=== PATIENT | female | born 1940 | race Caucasian/White ===

== ENCOUNTER 2017-04-08 06:51 | Inpatient (IN) | payer SELFPAY ==
[~2017-04-08] VITALS: Ht 152.4 cm; Wt 68.0 kg
[2017-04-08 07:58] LABS: BASOPHILS % 0.8 % (0.0-2.0); HEMOGLOBIN. 11.4 g/dL (12.0-16.0); LYMPHOCYTES % 40.7 % (20.0-50.0); MEAN CORPUSCULAR VOLUME 85.8 fL (81.0-99.0); MEAN PLATELET VOLUME 9.5 fl (7.4-10.4); MONOCYTES % 4.2 % (2.0-8.0); NEUTROPHILS % 52.3 % (40.0-76.0); PLATELET 193 x1000/uL (130-400); RED BLOOD CELL COUNT 4.08 mill/uL (4.2-5.4); RED CELL DISTRIBUTION WIDTH 14.8 % (11.6-14.6)
[2017-04-08 08:15] LABS: CARBON DIOXIDE 31 mEq/L (21-32); CHLORIDE 106 mEq/L (98-107); TROPONIN I 0.08 ng/mL (0.00-0.04)
[2017-04-08 08:39] LABS: PROTHROMBIN TIME 10.4 sec (9.4-11.6)
[2017-04-08 10:17] LABS: CLARITY URINE CLOUDY (CLEAR); COLOR URINE YELLOW (YELLOW); KETONES URINE NEGATIVE (NEGATIVE); LEUKOCYTE ESTERASE URINE 1+ (NEGATIVE); NITRITE URINE POSITIVE (NEGATIVE); OCCULT BLOOD URINE NEGATIVE (NEGATIVE); PROTEIN URINE 2+ (NEGATIVE); SPECIFIC GRAVITY URINE 1.014 (1.005-1.030); UROBILINOGEN URINE 0.2 E.U./dL (0.2-1.0)
[2017-04-08] MEDS ORDERED: LEVOFLOXACIN 750MG PREMIX 150 ML IV NR (11:15)
[2017-04-08] MEDS ORDERED: SODIUM CHLORIDE 0.9% 500 ML IV ONE (11:15)
[2017-04-09 02:15] VITALS: BP 146/65
[2017-04-09] MEDS ORDERED: DEXTROSE 50% WATER 50ML SYRINGE IV PRN (03:45)
[2017-04-09] MEDS ORDERED: HYDROCODONE/ACETAMINOPHEN 5/325MG TABLET PO PRN (03:45)
[2017-04-09] MEDS ORDERED: ACETAMINOPHEN 325MG TABLET PO PRN (03:45)
[2017-04-09 04:00] VITALS: BP 131/52
[2017-04-09] MEDS ORDERED: CEFTRIAXONE 1 G PREMIX 50 ML IV SCH (06:00)
[2017-04-09] MEDS: INSULIN LISPRO 100 UNITS/ML SUBCUT SCH ×4 (06:31→21:35)
[2017-04-09] MEDS: BLOOD SUGAR DIAGNOSTIC STRIP TEST SCH ×4 (06:31→21:00)
[2017-04-09 08:00] VITALS: BP 153/70
[2017-04-09 12:00] VITALS: BP 131/55
[2017-04-09] MEDS ORDERED: MECLIZINE 12.5MG TABLET PO PRN (15:00)
[2017-04-09] MEDS ORDERED: BISACODYL 5MG TABLET PO PRN (15:00)
[2017-04-09] MEDS: AMLODIPINE 10MG TABLET PO SCH (15:36)
[2017-04-09] MEDS: DOCUSATE SODIUM 250MG CAPSULE PO SCH (15:36)
[2017-04-09 16:00] VITALS: BP 161/68
[2017-04-09 20:00] VITALS: BP 124/54
[2017-04-10] VITALS (7 sets, daily range): BP systolic 100–158; BP diastolic 49–80
[2017-04-10] MEDS: INSULIN LISPRO 100 UNITS/ML SUBCUT SCH ×3 (06:22→17:23)
[2017-04-10] MEDS: BLOOD SUGAR DIAGNOSTIC STRIP TEST SCH ×3 (06:23→16:14)
[2017-04-10] MEDS ORDERED: CEFTRIAXONE 1 G PREMIX 50 ML IV SCH (08:00)
[2017-04-10] MEDS: AMLODIPINE 10MG TABLET PO SCH (08:31)
[2017-04-10] MEDS: DOCUSATE SODIUM 250MG CAPSULE PO SCH ×2 (08:37→08:39)
[2017-04-10] MEDS ORDERED: AMLO10TA80 PO (12:59)
[2017-04-10] MEDS ORDERED: CEPH-569 PO (12:59)
[2017-04-10] MEDS ORDERED: METF10002 PO (12:59)
[2017-04-10] MEDS ORDERED: ATOR40TA70 PO (12:59)
[2017-04-10] MEDS ORDERED: ONDANSETRON HCL 4MG/2ML VIAL IV PRN (16:00)
== END 2017-04-10 20:30 | disposition home or self-care (01) | DRG 111 ==
LOC: ER 06:57 → 8WST 12:51 → EDBEDREQ 12:54 → EDBEDREQSVC 12:54 → ENRESERV 23:51
PROVIDERS: ADMIT Internal Medicine; ATTEND Internal Medicine
DX: R42 Dizziness and giddiness (principal); I11.9 Hypertensive heart disease without heart failure; N39.0 Urinary tract infection, site not specified; E11.9 Type 2 diabetes mellitus without complications; E78.5 Hyperlipidemia, unspecified; J98.11 Atelectasis; M19.90 Unspecified osteoarthritis, unspecified site; Z79.84 Long term (current) use of oral hypoglycemic drugs
CPT/HCPCS: 36415; 70551; 71010; 80053; 80061; 81001; 82962; 83880; 84484; 85025; 85610; 87077; 87086; 87186; 93005; 93306; 93970; 96365; 97161; 99285; A6261; J0696; J1815; J1956; J2405; J7030; J7050; J7060

== ENCOUNTER 2017-04-14 06:57 | Emergency (ER) | payer SELFPAY ==
[~2017-04-14] VITALS: Ht 160 cm; Wt 95.0 kg
[~2017-04-14 06:57] MED LIST: AMLO10TA80 PO; ATOR40TA70 PO; CEPH-569 PO; METF10002 PO
[2017-04-14 10:33] LABS: BASOPHILS % 0.6 % (0.0-2.0); EOSINOPHILS % 2.7 % (0.0-5.0); HEMATOCRIT. 31.9 % (36.0-48.0); HEMOGLOBIN. 10.6 g/dL (12.0-16.0); LYMPHOCYTES % 40.5 % (20.0-50.0); MEAN CORPUSCULAR HEMOGLOBIN 28.2 pg (28.0-32.0); MEAN CORPUSCULAR VOLUME 85.1 fL (81.0-99.0); MEAN PLATELET VOLUME 9.9 fl (7.4-10.4); MONOCYTES % 4.4 % (2.0-8.0); NEUTROPHILS % 51.8 % (40.0-76.0); PLATELET 222 x1000/uL (130-400); RED BLOOD CELL COUNT 3.75 mill/uL (4.2-5.4); RED CELL DISTRIBUTION WIDTH 14.5 % (11.6-14.6)
[2017-04-14 10:52] LABS: CARBON DIOXIDE 28 mEq/L (21-32); CHLORIDE 107 mEq/L (98-107); TROPONIN I 0.05 ng/mL (0.00-0.04)
[2017-04-14 10:56] LABS: PARTIAL THROMBOPLASTIN TIME 27.8 sec (23.4-31.0); PROTHROMBIN TIME 10.7 sec (9.4-11.6)
[2017-04-14 14:03] VITALS: BP 152/79
== END 2017-04-14 14:10 | disposition home or self-care (01) ==
LOC: ER 07:08
DX: R42 Dizziness and giddiness (principal); I10 Essential (primary) hypertension; E11.9 Type 2 diabetes mellitus without complications; I44.0 Atrioventricular block, first degree; I51.7 Cardiomegaly
CPT/HCPCS: 36415; 70450; 71010; 80053; 83690; 84484; 85025; 85610; 85730; 93005; 99285; Z7610